=== PATIENT | male | born 1955 | race Caucasian/White ===

== ENCOUNTER → 2016-10-06 | Outpatient (CLI) | payer BC | LOC: COL.RAD 12:30 | DX: M47.812 Spondylosis without myelopathy or radiculopathy, cervical region (principal); M75.111 Incomplete rotator cuff tear or rupture of right shoulder, not specified as traumatic; M75.21 Bicipital tendinitis, right shoulder; S43.081A Other subluxation of right shoulder joint, initial encounter; M75.01 Adhesive capsulitis of right shoulder; M65.811 Other synovitis and tenosynovitis, right shoulder; M24.211 Disorder of ligament, right shoulder; S43.491A Other sprain of right shoulder joint, initial encounter; M19.011 Primary osteoarthritis, right shoulder; M75.51 Bursitis of right shoulder ==

== ENCOUNTER → 2018-04-07 | Outpatient (CLI) | payer BC | LOC: COL.RAD 09:45 | DX: K82.4 Cholesterolosis of gallbladder (principal) ==

== ENCOUNTER → 2019-04-19 | Outpatient (CLI) | payer BC ==
[2019-04-19 16:52] LABS: MAGNESIUM 2.3 mg/dL (1.6-2.3)
[2019-04-19 17:09] LABS: TROPONIN-I < 0.012 ng/mL (0.000-0.035)
== END ==
LOC: ZCOL.LAB 14:46
PROVIDERS: Family Medicine
DX: R07.9 Chest pain, unspecified (principal)